=== PATIENT | male | born 2000 | race African-American/Black ===

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

== ENCOUNTER 2022-08-10 07:53 | Day surgery (SDC) | payer OTHER ==
[2022-08-06 12:39] VITALS: BMI 26.0
[2022-08-10] MEDS ORDERED: Fentanyl 100 MCG/2 ML VIAL ONE (09:35)
[2022-08-10] MEDS ORDERED: PROPOFOL 20 ML ONE (09:35)
[2022-08-10] MEDS ORDERED: Midazolam HCl 2 mg/2 ml Vial ONE (09:35)
[2022-08-10] MEDS ORDERED: Glycopyrrolate 0.2 MG/ML 5 ML SYRINGE ONE (09:35)
[2022-08-10] MEDS ORDERED: Lidocaine 1% PF 5 ML VIAL ONE (09:35)
[2022-08-10] MEDS ORDERED: Ondansetron PF 4 MG/2 ML Vial ONE (09:35)
[2022-08-10] MEDS ORDERED: oFLOXacin 0.3% Opth 5 ML BOT ONE (09:38)
== END 2022-08-10 11:00 | disposition home or self-care (01) ==
LOC: CSHSDC 07:53
PROVIDERS: ATTEND Otolaryngology Plastic Surgery within the Head & Neck
PROC: 099670Z Drainage of Left Middle Ear with Drainage Device, Via Natural or Artificial Opening (ICD-10-PCS; principal; 2022-08-10)
PROC: 09Q77ZZ Repair Right Tympanic Membrane, Via Natural or Artificial Opening (ICD-10-PCS; principal; 2022-08-10)
PROC: 099570Z Drainage of Right Middle Ear with Drainage Device, Via Natural or Artificial Opening (ICD-10-PCS; principal; 2022-08-10)
DX: H65.23 Chronic serous otitis media, bilateral (principal); H61.23 Impacted cerumen, bilateral; T85.698A Other mechanical complication of other specified internal prosthetic devices, implants and grafts, initial encounter; H72.91 Unspecified perforation of tympanic membrane, right ear; H73.892 Other specified disorders of tympanic membrane, left ear; H69.83 Other specified disorders of Eustachian tube, bilateral; I10 Essential (primary) hypertension; E11.9 Type 2 diabetes mellitus without complications; J45.909 Unspecified asthma, uncomplicated; Z79.4 Long term (current) use of insulin; Z79.84 Long term (current) use of oral hypoglycemic drugs; Z79.899 Other long term (current) drug therapy; Z98.890 Other specified postprocedural states
CPT/HCPCS: J2250; J2405; J2704; J3010; L8699